=== PATIENT | female | born 1975 | race Caucasian/White ===

== ENCOUNTER 2017-11-25 18:35 | Emergency (ER) | payer OTHER ==
--- NOTE | 2017-11-25 19:02 | PDOC ---
History of Present Illness - General History Source: Patient Exam Limitations: No Limitations - History of Present Illness Initial Comments: 11/25/17 19:11 The patient is a 42 year old female, with no significant past medical history, who presents to the emergency department one hour s/p mechanical fall with, a laceration on the right orbital region and right knee. As per patient, she tripped in her driveway. She reports her laceration on her eye came from her glasses were initially bleeding as were her laceration on her right knee, however, has since stopped. Secondary to her symptoms, she reports abrasions to her right palm. She reports cleaning out both wounds and wrapping her knees prior to her arrival to the ED. She denies any loss of consciousness. She denies recent fevers, chills, headache or dizziness. She denies recent nausea, vomit, diarrhea or constipation. She denies recent dysuria, frequency, urgency or hematuria. She denies recent chest pain or shortness of breath. Allergies: NKA Past surgical history: None reported. Social history: Nonsmoker. Denies EtOH use and recreational drug use. Primary Care Physician: Dr. Kade Manriquez <Fam Ahn - Last Filed: 11/25/17 20:02> <Guilherme Arora - Last Filed: 11/26/17 06:28> - General Chief Complaint: Injury Stated Complaint: FELL, FACE, HAND, KNEE, ANKLE INJURY Past History <Fam Ahn - Last Filed: 11/25/17 20:02> <Guilherme Arora - Last Filed: 11/26/17 06:28> - Past Medical History Allergies/Adverse Reactions: Allergies Allergy/AdvReac Type Severity Reaction Status Date / Time No Known Allergies Allergy Verified 11/25/17 18:46 Home Medications: Ambulatory Orders Hydrochlorothiazide 25 mg PO DAILY 11/25/17 Metoprolol Succinate [Toprol Xl] 50 mg PO DAILY 11/25/17 Review of Systems - Review of Systems Able to Perform ROS?: Yes Comments:: 11/25/17 19:11 GENERAL/CONSTITUTIONAL: No fever or chills. No weakness. HEAD, EYES, EARS, NOSE AND THROAT: +Laceration to the right orbital region. No change in vision. No ear pain or discharge. No sore throat. CARDIOVASCULAR: No chest pain or shortness of breath. RESPIRATORY: No cough, wheezing, or hemoptysis. GASTROINTESTINAL: No nausea, vomiting, diarrhea or constipation. GENITOURINARY: No dysuria, frequency, or change in urination. MUSCULOSKELETAL: No joint or muscle swelling or pain. No neck or back pain. SKIN: +Laceration to the right knee. +Abrasion to the right hand. NEUROLOGIC: No headache, vertigo, loss of consciousness, or change in strength/ sensation. ENDOCRINE: No increased thirst. No abnormal weight change. HEMATOLOGIC/LYMPHATIC: No anemia, easy bleeding, or history of blood clots. ALLERGIC/IMMUNOLOGIC: No hives or skin allergy. <Fam Ahn - Last Filed: 11/25/17 20:02> *Physical Exam - Vital Signs Last Vital Signs Temp Pulse Resp BP Pulse Ox 97.7 F 100 H 16 144/93 100 11/25/17 18:46 11/25/17 18:46 11/25/17 18:46 11/25/17 18:46 11/25/17 18:46 - Physical Exam Comments: 11/25/17 20:02 GENERAL: Awake, alert, and fully oriented, in no acute distress HEAD: + 5 cm laceration over the right eyebrow. 4 cm infraorbital laceration. No bony tenderness. No active bleeding. EYES: PERRLA, EOMI, sclera anicteric, conjunctiva clear ENT: Auricles normal inspection, hearing grossly normal, nares patent, oropharynx clear without exudates. Moist mucosa NECK: Normal ROM, supple, no lymphadenopathy, JVD, or masses LUNGS: Breath sounds equal, clear to auscultation bilaterally. No wheezes, and no crackles HEART: Regular rate and rhythm, normal S1 and S2, no murmurs, rubs or gallops ABDOMEN: Soft, nontender, normoactive bowel sounds. No guarding, no rebound. No masses EXTREMITIES: Normal range of motion, no edema. No clubbing or cyanosis. No cords, erythema, or tenderness NEUROLOGICAL: Cranial nerves II through XII grossly intact. Normal speech, normal gait SKIN: + Abrasion to the bridge of the nose and right knee. No septal hematoma. No active bleeding. Warm, Dry, normal turgor, no rashes. <Fam Ahn - Last Filed: 11/25/17 20:02> Procedures - Laceration/Wound Repair Right Upper Eye Wound Length: 5.0 to 7.5 cm Wound Explored: clean, no foreign body present Wound's Depth, Shape: linear Irrigated w/ Saline: Yes Betadine Prep: Yes Anesthesia: 1% Lidocaine Amount of Anesthetic (ccs): 100 Wound Debrided: moderate Wound Repaired With: Sutures Suture Size/Type: 6:0, nylon Number of Sutures: 4 Number of Deep Layer Sutures: 0 Sterile Dressing Applied: Yes Splint Applied: No Sling Applied: No Right Lower Eye Wound Length: 2.6 to 5.0 cm Wound Explored: clean, no foreign body present Wound's Depth, Shape: linear Irrigated w/ Saline: Yes Betadine Prep: Yes Anesthesia: 1% Lidocaine Amount of Anesthetic (ccs): 100 Wound Debrided: moderate Wound Repaired With: Sutures Suture Size/Type: 6:0, nylon Number of Sutures: 3 Layer Closure: No Number of Deep Layer Sutures: 0 Sterile Dressing Applied: Yes Splint Applied: No Sling Applied: No <Fam Ahn - Last Filed: 11/25/17 20:02> Medical Decision Making - Medical Decision Making 11/26/17 06:28 lacs repaired large clean knee abrasion tetanus no anand tenderness <Guilherme Arora - Last Filed: 11/26/17 06:28> *DC/Admit/Observation/Transfer - Attestations Scribe Attestion: 11/25/17 19:13 Documentation prepared by Fam Ahn, acting as medical center representative for Emergency Dept,PhysicianMD. <Fam Ahn - Last Filed: 11/25/17 20:02> <Guilherme Arora - Last Filed: 11/26/17 06:28> Diagnosis at time of Disposition: Laceration, Abrasion - Discharge Dispostion Disposition: HOME Condition at time of disposition: Good - Referrals Referrals: Kade Manriquez [Primary Care Provider] - - Patient Instructions Printed Discharge Instructions: DI for Laceration Repair -- Simple Additional Instructions: Stitches out on - Post Discharge Activity
[2017-11-25] MEDS ORDERED: LIDOCAINE HCL 1%, 10 MG/ML (20ML VIAL) ONE (19:05)
[2017-11-25 19:08] VITALS: BP 144/93; PULSE 100; TEMP 97.7; BMI 22.6
[2017-11-25] MEDS ORDERED: DIPHTH,PERTUSS(ACELL),TET 0.5 ML DISP.SYRIN IM ONE (19:33)
== END 2017-11-25 19:41 | disposition home or self-care (01) ==
LOC: FER 18:35
PROC: 08QQXZZ Repair Right Lower Eyelid, External Approach (ICD-10-PCS; principal; 2017-11-25)
PROC: 08QNXZZ Repair Right Upper Eyelid, External Approach (ICD-10-PCS; 2017-11-25)
PROC: 3E0234Z Introduction of Serum, Toxoid and Vaccine into Muscle, Percutaneous Approach (ICD-10-PCS; 2017-11-25)
DX: S01.111A Laceration without foreign body of right eyelid and periocular area, initial encounter (principal); S91.011A Laceration without foreign body, right ankle, initial encounter; S81.011A Laceration without foreign body, right knee, initial encounter; W18.39XA Other fall on same level, initial encounter; Y93.89 Activity, other specified; Y92.9 Unspecified place or not applicable
CPT/HCPCS: 90715; 99282-25